=== PATIENT | male | born 1955 ===

== ENCOUNTER 2021-03-04 19:01 | Emergency (ER) | payer SELFPAY ==
[~2021-03-04] VITALS: Ht 175.3 cm; Wt 74.8 kg
[2021-03-04 19:11] VITALS: BP 127/70
== END 2021-03-04 19:42 | disposition left against medical advice (07) ==
LOC: ER 19:01
DX: M25.561 Pain in right knee (principal); G89.29 Other chronic pain; Z53.21 Procedure and treatment not carried out due to patient leaving prior to being seen by health care provider